=== PATIENT | male | born 1995 | race Caucasian/White ===

== ENCOUNTER 2020-01-02 11:56 | Emergency (ER) | payer SELFPAY ==
[~2020-01-02] VITALS: Ht 182.9 cm; Wt 83.5 kg
[2020-01-02 12:58] VITALS: BP 123/74
[2020-01-02] MEDS ORDERED: HYDROcodone-ACET 5/325MG TAB PO ONE (13:15)
== END 2020-01-02 13:29 | disposition home or self-care (01) ==
LOC: ER 11:56
DX: M24.411 Recurrent dislocation, right shoulder (principal)
CPT/HCPCS: 29105; 73030

== ENCOUNTER 2020-08-09 05:02 | Emergency (ER) | payer SELFPAY ==
[~2020-08-09] VITALS: Ht 182.9 cm; Wt 83.9 kg
[2020-08-09 05:09] VITALS: BP 147/70
[2020-08-09] MEDS ORDERED: BACITRACIN TOP OINT 1 UD PKG TOP ONE (05:30)
[2020-08-09] MEDS ORDERED: LIDOCAINE 1% HCL (LOCAL ANESTH.) INJ 20ML MDV ID ONE (05:30)
== END 2020-08-09 06:04 | disposition home or self-care (01) ==
LOC: ER 05:02
DX: S61.412A Laceration without foreign body of left hand, initial encounter (principal); W26.0XXA Contact with knife, initial encounter; Y93.89 Activity, other specified; Y92.89 Other specified places as the place of occurrence of the external cause; Y99.8 Other external cause status
CPT/HCPCS: 12001; 99283; J2001

== ENCOUNTER 2020-08-25 07:28 | Emergency (ER) | payer SELFPAY ==
[~2020-08-25] VITALS: Ht 180.3 cm; Wt 81.6 kg
[2020-08-25 08:00] VITALS: BP 126/64
== END 2020-08-25 08:11 | disposition home or self-care (01) ==
LOC: ER 07:28
DX: S61.213D Laceration without foreign body of left middle finger without damage to nail, subsequent encounter (principal); X58.XXXD Exposure to other specified factors, subsequent encounter

== ENCOUNTER 2023-03-13 12:58 | Emergency (ER) | payer BC, MEDICAID ==
[~2023-03-13] VITALS: Ht 182.9 cm; Wt 87.1 kg
[2023-03-13 13:06] VITALS: BP 147/83
[2023-03-13 13:29] LABS: Basophils # (auto) 0 10 ^3/uL (0-0.2); Basophils % (auto) 0.8 % (0.0-2.0); Eosinophils # (auto) 0.1 10 ^3/uL (0-0.8); Eosinophils % (auto) 1.9 % (0.0-7.0); Hematocrit 45.5 % (41.0-53.0); Lymphocytes # (auto) 1.9 10 ^3/uL (0.4-5.4); Lymphocytes % (auto) 49.1 % (10.0-50.0); Mean Corpuscular Hemoglobin 27.6 pg (28.0-32.0); Mean Corpuscular Hgb Conc. 32.8 g/dL (32.0-36.0); Mean Corpuscular Volume 84.1 fL (80.0-100.0); Monocytes # (auto) 0.4 10 ^3/uL (0-1.3); Neutrophils # (auto) 1.4 10 ^3/uL (1.6-8.6); Neutrophils % (auto) 37.2 % (37.0-80.0); Nucleated Red Blood Cells % 0.1 %; Red Blood Cells 5.41 10^6/uL (4.5-5.90); Red Cell Distribution Width 14.1 % (11.8-14.3); White Blood Cell 3.9 10^3/uL (4.4-10.8)
[2023-03-13 13:51] LABS: Albumin 4.5 g/dL (3.4-5.0); Calcium 9.7 mg/dL (8.5-10.1); Potassium 4.1 mmol/L (3.5-5.1)
[2023-03-13 13:55] LABS: BUN/Creatinine Ratio 13.5 (10.0-20.0); Bilirubin, Total 0.6 mg/dL (0.2-1.0); Total Protein 8.1 g/dL (6.4-8.2)
[2023-03-13 14:23] LABS: Urine Bacteria NONE SEEN /hpf (None Seen); Urine Blood Negative /uL (Negative); Urine Specific Gravity 1.011 (1.001-1.035); Urine WBC 2 /hpf (0 - 3)
[2023-03-13 14:39] LABS: Alcohol, Urine < 3.0 mg/dL (0-10); Amphetamine Screen, Urine NEGATIVE (NEGATIVE); Barbiturate Scree,Urine NEGATIVE (NEGATIVE); Benzodiazephine Screen, Urine NEGATIVE (NEGATIVE); Cannabinoid Screen, Urine POSITIVE (NEGATIVE); Cocaine Screen, Urine NEGATIVE (NEGATIVE); Phencyclidine Screen, Urine NEGATIVE (NEGATIVE)
[2023-03-13 14:46] LABS: Opiate Scree,Urine NEGATIVE (NEGATIVE)
[2023-03-13] MEDS ORDERED: ACET1CAP14 PO (15:13)
[2023-03-13 17:20] LABS: Hepatitis B Surface Antibody Positive (Negative)
== END 2023-03-13 15:50 | disposition home or self-care (01) ==
LOC: ER 12:58
DX: N43.3 Hydrocele, unspecified (principal); K92.1 Melena
CPT/HCPCS: 36415; 74176; 76870; 80053; 80307; 80320; 81001; 85025; 86592; 86703; 86706; 86803; 87340

== ENCOUNTER → 2023-06-07 | Outpatient (CLI) | payer BC, MEDICAID ==
[~2023-06-07] MED LIST: ACET1CAP14 PO
[2023-06-07 11:40] LABS: Hematocrit 41.4 % (41.0-53.0); Hemoglobin 13.5 g/dL (13.5-17.5); Mean Corpuscular Hemoglobin 27.5 pg (28.0-32.0); Mean Corpuscular Hgb Conc. 32.5 g/dL (32.0-36.0); Mean Corpuscular Volume 84.6 fL (80.0-100.0); White Blood Cell 2.7 10^3/uL (4.4-10.8)
[2023-06-07 12:15] LABS: Potassium 4.6 mmol/L (3.5-5.1)
[2023-06-07 12:35] LABS: Albumin 4.1 g/dL (3.4-5.0); BUN/Creatinine Ratio 17.3 (10.0-20.0); Bilirubin, Total 0.2 mg/dL (0.2-1.0); Calcium 9.5 mg/dL (8.5-10.1); Total Protein 7.6 g/dL (6.4-8.2)
[2023-06-07 12:46] LABS: Basophils % (manual) 0 (0.0-2.0); Blast Cells 0; Metamyelocytes % 0; Myelocytes % 0; Promyelocytes % 0; Reactive Lymphocytes 0
[2023-06-07 15:00] LABS: Band Neutrophils % (manual) 1; Eosinophils % (manual) 4 (0-7); Lymphocytes % (manual) 59 (10.0-50.0); Monocytes % (manual) 6 (0-12)
== END | disposition home or self-care (01) ==
LOC: LAB 11:16
DX: Z41.9 Encounter for procedure for purposes other than remedying health state, unspecified (principal); Z76.89 Persons encountering health services in other specified circumstances
CPT/HCPCS: 36415; 80053; 84439; 84443; 85007; 85027

== ENCOUNTER 2023-09-13 08:23 | Day surgery (SDC) | payer BC, MEDICAID ==
[2023-09-08 09:08] LABS: Basophils # (auto) 0 10 ^3/uL (0-0.2); Basophils % (auto) 0.7 % (0.0-2.0); Eosinophils # (auto) 0.3 10 ^3/uL (0-0.8); Eosinophils % (auto) 7.9 % (0.0-7.0); Hemoglobin 14.3 g/dL (13.5-17.5); Lymphocytes # (auto) 1.8 10 ^3/uL (0.4-5.4); Lymphocytes % (auto) 49.3 % (10.0-50.0); Mean Corpuscular Hemoglobin 27.6 pg (28.0-32.0); Mean Corpuscular Hgb Conc. 32.4 g/dL (32.0-36.0); Mean Corpuscular Volume 85.2 fL (80.0-100.0); Monocytes # (auto) 0.3 10 ^3/uL (0-1.3); Monocytes % (auto) 9.3 % (0.0-12.0); Neutrophils # (auto) 1.2 10 ^3/uL (1.6-8.6); Neutrophils % (auto) 32.8 % (37.0-80.0); Nucleated Red Blood Cells % 0.1 %; Red Blood Cells 5.17 10^6/uL (4.5-5.90); White Blood Cell 3.7 10^3/uL (4.4-10.8)
[2023-09-08 09:23] LABS: INR 1.02 (0.9-1.15); Prothrombin Time 10.7 sec (9.3-11.8)
[2023-09-08 09:31] LABS: Urine Bacteria NONE SEEN /hpf (None Seen); Urine Blood Negative /uL (Negative); Urine Clarity Clear (Clear); Urine Protein, UAD Negative (Negative); Urine Specific Gravity 1.018 (1.001-1.035); Urine Urobilinogen Normal (Negative); Urine WBC <1 /hpf (0 - 3); Urine pH 6.5 (5.0-8.0)
[2023-09-08 09:32] LABS: Urine Color STRAW (Yellow)
[2023-09-08 09:33] LABS: Alanine Aminotransferase 18 U/L (7-40); Albumin 4.9 g/dL (3.2-4.8); Alkaline Phosphatase 56 U/L (46-116); Anion Gap 6 (5-15); Aspartate Aminotransferase 26 U/L (13-40); BUN/Creatinine Ratio 9.4 (10.0-20.0); Bilirubin, Total 0.4 mg/dL (0.2-1.0); Blood Urea Nitrogen 12 mg/dL (9-23); Carbon Dioxide 30 mmol/L (20-30); Chloride 104 mmol/L (98-107); Glucose 95 mg/dL (74-106); Potassium 4.4 mmol/L (3.5-5.1); Sodium 140 mmol/L (136-145); Total Protein 7.6 g/dL (5.7-8.2)
[~2023-09-13] VITALS: Ht 180.3 cm; Wt 91.6 kg
[~2023-09-13 08:23] MED LIST changes: +ceFAZolin 2 GM/D5W100ml 100 ML IV ONE
[2023-09-13] MEDS ORDERED: HYDROmorphone HCL 2 MG/ML VL/or syr ONE (12:11)
[2023-09-13] MEDS ORDERED: fentaNYL CITRATE 100 MCG/2 ML VL ONE ×2 (12:11→13:09)
[2023-09-13] MEDS ORDERED: MIDAZOLAM HCL 2MG/2ML 2ml VIAL (1mg/ml) ONE (12:11)
[2023-09-13] MEDS ORDERED: EPINEPHrine HCL 1 MG/1 ML AMP ONE (12:19)
[2023-09-13] MEDS ORDERED: PROPOFOL 10 MG/ML 20 ML IV ONE (12:28)
[2023-09-13] MEDS ORDERED: KETOROLAC TROMETH 30 MG/ML 1ML VIAL IV ONE (13:00)
[2023-09-13] MEDS ORDERED: ONDANSETRON HCL 4 MG/2 ML VIAL IV PRN (13:00)
[2023-09-13] MEDS ORDERED: HYDROmorphone HCL 2 MG/ML VL/or syr IV PRN ×2 (13:00→16:00)
[2023-09-13] MEDS ORDERED: MIDAZOLAM HCL 2MG/2ML 2ml VIAL (1mg/ml) IV PRN (13:00)
[2023-09-13] MEDS ORDERED: MORPHINE SULFATE 4 MG/ML SYR/VIAL IV PRN (13:00)
[2023-09-13] MEDS ORDERED: LABETALOL HCL 5 MG/ML 4ML SYRINGE IV PRN (13:00)
[2023-09-13] MEDS ORDERED: ePHEDrine SULFATE 50 MG/ML AMP IV PRN (13:00)
[2023-09-13] MEDS ORDERED: BUPIVACAINE HCL 50 ML ONE (14:53)
[2023-09-13] MEDS ORDERED: SUGAMMADEX 200mg/2ml Vial (100MG/ML) IV ONE (14:54)
[2023-09-13 15:22] VITALS: TEMP 97.7; O2SAT 100
[2023-09-13] MEDS ORDERED: HYDR-4072 PO (15:34)
[2023-09-13] MEDS ORDERED: ASPI-498 OR (15:35)
[2023-09-13] MEDS ORDERED: CEPH250C PO (15:36)
[2023-09-13] MEDS ORDERED: diphenhdrAMINE HCL 50 MG/1 ML VL ONE (16:36)
[2023-09-13] MEDS ORDERED: diphenhdrAMINE HCL 50 MG/1 ML VL IM ONE (16:45)
[2023-09-13 16:53] VITALS: BP 141/91; PULSE 67; RESP 14; O2SAT 96
== END 2023-09-13 16:55 | disposition home or self-care (01) ==
LOC: SUR 08:23
PROVIDERS: ATTEND Orthopaedic Surgery Sports Medicine
DX: S43.431A Superior glenoid labrum lesion of right shoulder, initial encounter (principal); M25.311 Other instability, right shoulder; M94.211 Chondromalacia, right shoulder; X58.XXXA Exposure to other specified factors, initial encounter; Y93.89 Activity, other specified; Y92.89 Other specified places as the place of occurrence of the external cause; Y99.8 Other external cause status; M24.411 Recurrent dislocation, right shoulder
CPT/HCPCS: 29807; 29823; 36415; 80053; 81001; 85025; 85610; 85730; C1713; J0171; J1170; J1200; J2250; J2704; J3010; J3490; A4565

== ENCOUNTER 2024-08-28 12:50 | Emergency (ER) | payer BC, MEDICAID ==
[~2024-08-28] VITALS: Ht 182.9 cm; Wt 86.7 kg
[~2024-08-28 12:50] MED LIST changes: +ASPI-498 OR; +CEPH250C PO; +HYDR-4072 PO; -ceFAZolin 2 GM/D5W100ml 100 ML IV ONE
--- NOTE | 2024-08-28 14:23 | ED.PDOC ---
Musculoskeletal HPI Comments This otherwise healthy 28-year-old male status post fall on August 09, 2024 presents to the ED secondary to continued right knee pain. He was told at the time that he has a patella fracture. He has been unable to the follow-up. He continues to have severe pain. As such, he presents here. He has no other complaints such as headaches vision change abdominal pain, flank pain, numbness/tingling to extremity or weakness. Pain is worse with attempted ambulation direct palpation to the right knee. Denies any other palliative provocative factors. Denies modifying factors. Denies radiation of symptoms. Pain is moderate to severe. Chief Complaint: Lower Extremity Time Seen by MD: 13:19 Primary Care Provider: JIN Fry Notes: Nurses Notes, Medications Allergies: Coded Allergies: NO KNOWN ALLERGIES (Unverified , 01/02/20) Home Meds Active Scripts Cephalexin (KEFLEX CAPSULE) 250 Mg Cp, 2 CAP PO QID for 5 Days, #40 CAP Prov:ASHLEY FROST MD 09/13/23 Aspirin (ASPIRIN 81) 81 Mg Tab, 81 MG OR DAILY for 20 Days, #20 TAB Prov:ASHLEY FROST MD 09/13/23 Hydrocodone-Acetaminophen (Hydrocodone/Acetaminophen 10-325 mg) 1 Tab Tab, 1 TAB PO Q6HP PRN for 7 Days, #28 TAB Prov:ASHLEY FROST MD 09/13/23 Acetaminophen (Tylenol) 325 Mg Cap, 325 MG PO Q4HPRN PRN, #30 CAP 0 Refills Take 1-2 caps po q4h prn for pain (Do not exceed 3,000mg of acetaminophen in 24 hours) Prov:LILIBETH MOYAP 03/13/23 Information Source: Patient, Relative (Mother) Mode of Arrival: Ambulatory Location: Right Extremity Location: Knee Timing: Days Severity: Moderate Able to Move Extremity: Yes Bear Weight: Limited Pain: Moderate Onset of Symptoms: After Trauma Symptoms: Swelling, Pain DVT Risk Factors: NONE Last Tetanus: UTD Associated signs and symptoms: None Past Medical History PAST MEDICAL HISTORY: Denies Surgical History: Denies all surgeries Family History Family History: Reviewed,noncontributory to illness Social History Smoker: Non-Smoker Alcohol: Denies ETOH Use Drugs: Denies Drug Use Lives In: Home Constitutional: denies: chills, diaphoresis, fatigue, fever, malaise, sweats, weakness, others EENTM: denies: blurred vision, double vision, ear bleeding, ear discharge, ear drainage, ear pain, ear ringing, eye pain, eye redness, hearing loss, mouth pain, mouth swelling, nasal discharge, nose bleeding, nose congestion, nose pain, photophobia, tearing, throat pain, throat swelling, voice changes, others Respiratory: denies: cough, hemoptysis, orthopnea, SOB at rest, shortness of breath, SOB with excertion, stridor, wheezing, others Cardiovascular: denies: chest pain, dizzy spells, diaphoresis, Dyspnea on exertion, edema, irregular heart beat, left arm pain, lightheadedness, palpitations, PND, syncope, others Gastrointestinal: denies: abdomen distended, abdominal pain, blood streaked bowels, constipated, diarrhea, dysphagia, difficulty swallowing, hematemesis, melena, nausea, poor appetite, poor fluid intake, rectal bleeding, rectal pain, vomiting, others Neurological: denies: dizziness, fainting, headache, left sided numbness, left sided weakness, numbness, paresthesia, pre-existing deficit, right sided numbness, right sided weakness, seizure, speech problems, tingling, tremors, weakness, others Musculoskeletal: reports: joint pain, joint swelling Integumetry: denies: bruises, change in color, dryness, rash, wounds, others Physical Exam General Appearance: No Apparent Distress, Normal HEENT: Normal ENT Inspection, Pharynx Normal, TMs Normal Neck: Full Range of Motion, Non-Tender, Normal, Normal Inspection Respiratory: Chest Non-Tender, Lungs Clear, No Accessory Muscle Use, No Respiratory Distress, Normal Breath Sounds Cardiovascular: No Edema, No JVD, No Murmur, No Gallop, Normal Peripheral Pulses, Regular Rate/Rhythm Breast Exam: Deferred Gastrointestinal: No Organomegaly, Non Tender, No Pulsatile Mass, Normal Bowel Sounds, Soft Genitalia: Deferred Pelvic: Deferred Rectal: Deferred Extremities: Calf tenderness, Normal inspection, Normal range of motion, Tender, Other (+ ballotment) Neurologic: Abnormal Gait, register in chancery II-XII nml as Tested, Motor Weakness, No Motor Deficits, No Sensory Deficits, Other (Right knee with minimal edema and possible Sunny's sign. Right knee in brace.) Cerebellar Function: Normal Reflexes: NOT DONE Skin: None, Normal Color, Warm Lymphatic: NOT DONE Was a procedure done? Was a procedure done?: No Differential Diagnosis EXT Differential Diagnosis: Cellulitis, Deep Vein Thrombosis, Fracture, Sprain, Dislocation, Myocardial Infarction, Contusion, Strain, Septic, Arthritis X-Ray, Labs, Meds, VS Vital Signs Date Time Temp Pulse Resp B/P (MAP) Pulse Ox O2 Delivery O2 Flow Rate FiO2 08/28/24 12:58 99.1 72 18 116/69 (85) 96 X-Ray, Labs, Meds, VS Comment 8-year-old male presents secondary to right knee pain. He was told had another facility he has a right knee fracture. Presents secondary to continued pain. Our x-ray here both on my preliminary read and the final read do not show any obvious acute pathology such as a fracture or dislocation. I had a lengthy discussion with the patient, he has an MRI scheduled with [facility] on 08/30/2024. As such, the patient will be discharged home. The patient has take Tylenol and ibuprofen p.r.n. for pain. The rest, ice and elevate the extremity. She will return to the ER for any new or worrisome complaints. Otherwise, her PCP and continue outpatient management. Time of 1ST Reevaluation: 15:32 Reevaluation 1ST: Unchanged Patient Education/Counseling: Diagnosis, Treatment, Prognosis, Need For Follow Up Family Education/Counseling: Diagnosis, Treatment, Prognosis, Need For Follow Up Sepsis Sepsis Reasesment Focused Exam Sepsis focused exam: focus exam completed Departure 1 Departure Time of Disposition: 15:36 Impression: Primary Impression: Knee pain, right Additional Impression: Strain of right knee Disposition: 01 HOME / SELF CARE / HOMELESS Condition: Good Discharged With: Self Critical Care Note Critical Care Time?: No Stability Stability form required: No Heart Score Heart Score: Heart Score Response (Comments) Value History N/A 0 EKG N/A 0 Age N/A 0 Risk Factors N/A 0 Troponin N/A 0 Total 0 SUBHA CROW BS Aug 28, 2024 14:23
--- NOTE | 2024-08-28 14:56 | DVH ---
EXAM: XY R KNEE 4V XRAY CLINICAL HISTORY: right knee pain patella fx COMPARISON: None TECHNIQUE: XY R KNEE 4V XRAY Findings/Impression: 4 views of the right knee. There is no evidence of an acute fracture, dislocation, blastic, or lytic lesions. No radiopaque foreign bodies. Small to moderate joint effusion with moderate soft tissue edema.
[2024-08-28] MEDS ORDERED: IBUP-1453 PO (16:43)
[2024-08-28] MEDS ORDERED: ACET1CAP14 PO (16:43)
[2024-08-28 16:48] VITALS: BP 115/65; PULSE 60; RESP 20; TEMP 98.1; O2SAT 98
== END 2024-08-28 16:54 | disposition home or self-care (01) ==
LOC: ER 12:50
DX: S86.811A Strain of other muscle(s) and tendon(s) at lower leg level, right leg, initial encounter (principal); Z79.82 Long term (current) use of aspirin; Z79.899 Other long term (current) drug therapy; W18.39XA Other fall on same level, initial encounter; Y93.89 Activity, other specified; Y92.89 Other specified places as the place of occurrence of the external cause; Y99.8 Other external cause status
CPT/HCPCS: 29505; 73564